=== PATIENT | female | born 1945 | race Caucasian/White ===

== ENCOUNTER → 2018-02-26 | Outpatient (CLI) | payer MEDICARE, BC ==
[~2018-02-26] MED LIST: ADVAIR 250/28 DISKU1 IH; CALCIUM WITH D1 CTB PO; COZAAR 25MG25 MG/TAB PO; LOVAZA1 GM PO; MULTIPLE VITAMI1 CAP PO; OMEPRAZOLE D/R20 MG PO; SERTRALINE50 MG PO; VENTOLIN0.09 MG IH
== END ==
LOC: MC.RAD 11:31
DX: Z12.31 Encounter for screening mammogram for malignant neoplasm of breast (principal)

== ENCOUNTER 2021-01-21 10:32 | Emergency (ER) | payer MEDICARE ==
[~2021-01-21] VITALS: Ht 162.6 cm; Wt 68.2 kg
[~2021-01-21 10:32] MED LIST changes: -OMEPRAZOLE D/R20 MG PO; +PRILOSEC 20MG20 MG PO
[2021-01-21 10:47] VITALS: TEMP 98.1
[2021-01-21] MEDS ORDERED: SINGULAIR 110 MG/TAB PO (10:56)
[2021-01-21] MEDS ORDERED: ZOLOFT 50MG50 MG PO (10:57)
[2021-01-21] MEDS ORDERED: BENICAR40 MG PO (10:57)
[2021-01-21 11:21] LABS: BASO # 0.1 K/mm3 (0.0-0.2); BASO % 0.9 % (0.0-2.0); EOS # 0.2 K/mm3 (0.0-0.7); GRAN # 4.3 K/mm3 (1.4-6.5); GRAN % 75.6 % (42.2-75.2); HEMOGLOBIN 13.9 g/dl (12.5-16.0); LYMPH # 0.6 K/mm3 (1.2-3.4); LYMPH % 10.2 % (20.0-51.0); MEAN CELL VOLUME 90 fl (80.0-100.0); MEAN CORPUSCULAR HEMOGLOBIN 31 pg (27.0-31.0); MEAN CORPUSCULAR HGB CONC 35 g/dl (33.0-37.0); MEAN PLATELET VOLUME 10.8 fl (7.4-10.4); MONO # 0.6 K/mm3 (0.1-0.6); MONO % 10.1 % (1.7-9.3); PLATELET COUNT 149 K/mm3 (130-400); RED BLOOD COUNT 4.43 M/mm3 (4.10-5.30); REDCELL DISTRIBUTION WIDTH-CV 12.3 % (11.5-14.5)
[2021-01-21 11:40] LABS: ALBUMIN 4.1 gm/dL (3.4-4.8); BILIRUBIN,TOTAL 0.8 mg/dL (0.2-1.2); CALCIUM 9.9 mg/dL (8.4-10.2); CREATININE, serum 0.62 mg/dL (0.57-1.11); POTASSIUM 4.4 mmol/L (3.5-4.5); TOTAL PROTEIN 6.6 gm/dL (6.2-8.1)
[2021-01-21 11:47] LABS: TROPONIN-I 0.024 ng/mL (0.00-0.033)
[2021-01-21 13:08] LABS: COLLECTION METHOD CLEAN CATCH
[2021-01-21 13:15] LABS: MUCOUS Present /lpf; PH 7 (5-8); SQUAMOUS EPITHELIAL None Seen /hpf; URINE APPEARANCE Clear; URINE BACTERIA Rare /hpf; URINE BILIRUBIN Negative (NEGATIVE); URINE BLOOD Negative (NEGATIVE); URINE COLOR Yellow; URINE GLUCOSE Negative (NEGATIVE); URINE KETONE Negative (NEGATIVE); URINE LEUKOCYTE ESTERASE Negative (NEGATIVE); URINE NITRATE Negative (NEGATIVE); URINE PROTEIN(semi-quant) Negative (NEGATIVE); URINE RBC 0-2 /hpf; URINE UROBILINOGEN Negative (NEGATIVE)
[2021-01-21] MEDS ORDERED: ANORO IH (13:28)
[2021-01-21] MEDS ORDERED: FOSAMAX 70MG TA70 MG PO (13:30)
[2021-01-21] MEDS ORDERED: ZOFRAN ODT4 MG PO (14:38)
[2021-01-21 16:11] VITALS: BP 128/76; PULSE 95
== END 2021-01-21 16:12 | disposition home or self-care (01) ==
LOC: COL.ER 10:32
PROVIDERS: Emergency Medicine; Physician Assistant
DX: K82.8 Other specified diseases of gallbladder (principal); E87.1 Hypo-osmolality and hyponatremia; I10 Essential (primary) hypertension; K21.9 Gastro-esophageal reflux disease without esophagitis; F32.A Depression, unspecified; Z87.891 Personal history of nicotine dependence; Z88.1 Allergy status to other antibiotic agents; Z79.899 Other long term (current) drug therapy
CPT/HCPCS: J1885; J2270; J2405; J7030

== ENCOUNTER 2021-02-01 11:17 | Day surgery (SDC) | payer MEDICARE ==
[~2021-02-01] VITALS: Ht 160 cm; Wt 64.4 kg
[~2021-02-01 11:17] MED LIST changes: +ANORO IH; +BENICAR40 MG PO; +FOSAMAX 70MG TA70 MG PO; +SINGULAIR 110 MG/TAB PO; +ZOFRAN ODT4 MG PO; +ZOLOFT 50MG50 MG PO
[2021-02-01] MEDS ORDERED: ZETIA 10MG TAB10 MG PO (11:54)
[2021-02-01] MEDS ORDERED: ZYRTEC 10MG10 MG PO (11:55)
[2021-02-01] MEDS ORDERED: DETROL 2MG TAB2 MG PO (11:56)
[2021-02-01 12:15] VITALS: BP 145/80; PULSE 77; TEMP 98.7
[2021-02-01] MEDS ORDERED: ULTRAM 50MG TAB50 MG PO (14:47)
[2021-02-01 15:45] VITALS: BP 92/62; PULSE 83; TEMP 98.5
--- NOTE | 2021-02-01 15:45 | NUR ---
Patient arrives to [facility] via cart, accompanied by [employer] Missy. She is drowsy, but easily awakens and converses appropriately with staff. She denies pain or nausea. Monitoring is applied - VSS and WNL on room air. She has 4 operative sites that are covered with clean/dry/intact bandaids. Lights are dimmed for comfort. Call light in reach. Her spouse is brought to the bedside. Will continue to monitor.
[2021-02-01 16:00] VITALS: BP 129/73; PULSE 79
--- NOTE | 2021-02-01 16:00 | NUR ---
Patient is more alert. She asks to sit up, HOB is raised. She denies pain, nausea, or need. She is offered and receives crackers and sprite to eat/drink. She requests and receives coffee. She is chatting with her spouse. VSS on room air.
[2021-02-01 16:15] VITALS: BP 152/62; PULSE 83
--- NOTE | 2021-02-01 16:15 | NUR ---
VSS on room air. Requests/receives more sprite and a muffin. Tolerating PO well.
[2021-02-01 16:30] VITALS: BP 106/88; PULSE 89
--- NOTE | 2021-02-01 16:50 | NUR ---
Patient ambulates to the restroom with steady gait, voids, and returns to room.
--- NOTE | 2021-02-01 17:10 | NUR ---
Patient has met discharge criteria. Discharge instructions are discussed. She denies any questions and verbalizes understanding. PIV is removed with catheter intact and hemostasis achieved. She changes to her clothing independently. She is escorted to the exit via wheelchair by staff. She is discharged to home to the care of her , who drives her home in private vehicle at 1710.
== END 2021-02-01 17:10 | disposition home or self-care (01) ==
LOC: SDCO 11:17
DX: K80.12 Calculus of gallbladder with acute and chronic cholecystitis without obstruction (principal); I10 Essential (primary) hypertension; E78.5 Hyperlipidemia, unspecified; J45.909 Unspecified asthma, uncomplicated; K21.9 Gastro-esophageal reflux disease without esophagitis; E78.00 Pure hypercholesterolemia, unspecified; F32.9 Major depressive disorder, single episode, unspecified; Z90.89 Acquired absence of other organs; Z79.899 Other long term (current) drug therapy; Z98.51 Tubal ligation status; Z83.3 Family history of diabetes mellitus
CPT/HCPCS: J2550; J3010; J7120

== ENCOUNTER 2021-03-02 08:04 | Day surgery (SDC) | payer MEDICARE ==
[~2021-03-02] VITALS: Ht 162.6 cm; Wt 65.5 kg
[~2021-03-02 08:04] MED LIST changes: +DETROL 2MG TAB2 MG PO; +ULTRAM 50MG TAB50 MG PO; +ZETIA 10MG TAB10 MG PO; +ZYRTEC 10MG10 MG PO
[2021-03-02 08:43] VITALS: BP 123/89; PULSE 86; TEMP 97.4
[2021-03-02 09:50] VITALS: BP 116/78; PULSE 78; TEMP 97.2
--- NOTE | 2021-03-02 09:50 | NUR ---
0950- PATIENT BROUGHT BACK TO [facility] VIA CART. AMBULATED TO CHAIR WITHOUT DIFFICULTY. PATIENT IS ALERT AND ORIENTED. DENIES PAIN OR NAUSEA. AT BEDSIDE TO DRIVE PATIENT HOME. RAMOS KELLER AT BEDSIDE FOR REPORT. IV INFUSING. PATIENT REQUESTS COFFEE AND MUFFIN. WARM BLANKET PROVIDED, CALL ANDINO WITHIN REACH. WILL CONTINUE TO MONITOR. 1005- PATIENT TOLERATING FOOD AND DRINK WITHOUT DIFFICULTY. VITAL SIGNS STABLE. 1020- VITAL SIGNS STABLE. PATIENT STATES SHE WOULD LIKE TO LEAVE AT THIS TIME. DR. CORRAL AT BEDSIDE TO SPEAK TO PATIENT ABOUT RESULTS. IV REMOVED, INTACT. DISCHARGE INSTRUCTIONS REVIEWED WITH PATIENT AND . PATIENT TO GET DRESSED AT THIS TIME. 1040- PATIENT BROUGHT DOWN TO LOBBY VIA WHEEL CHAIR. PICKED UP AT FRONT ENTRANCE. ASSISTED INTO PASSENGER SEAT. ALL BELONGINGS IN HAND.
[2021-03-02 10:05] VITALS: BP 120/84; PULSE 82
[2021-03-02 10:20] VITALS: BP 138/72; PULSE 75
== END 2021-03-02 10:40 | disposition home or self-care (01) ==
LOC: SDCO 08:04
DX: Z12.11 Encounter for screening for malignant neoplasm of colon (principal); D12.2 Benign neoplasm of ascending colon; K64.0 First degree hemorrhoids; K57.30 Diverticulosis of large intestine without perforation or abscess without bleeding; I10 Essential (primary) hypertension; K21.9 Gastro-esophageal reflux disease without esophagitis; J45.909 Unspecified asthma, uncomplicated; E78.00 Pure hypercholesterolemia, unspecified; E78.5 Hyperlipidemia, unspecified; F32.A Depression, unspecified; Z90.49 Acquired absence of other specified parts of digestive tract; Z90.89 Acquired absence of other organs; Z98.51 Tubal ligation status; Z80.0 Family history of malignant neoplasm of digestive organs
CPT/HCPCS: J2704; J7030

== ENCOUNTER → 2021-03-30 | Outpatient (CLI) | payer MEDICARE | LOC: MC.RAD 13:27 | DX: Z12.31 Encounter for screening mammogram for malignant neoplasm of breast (principal) ==

== ENCOUNTER → 2023-10-17 | Outpatient (CLI) | payer MEDICARE | LOC: MC.RAD 13:05 | DX: Z12.31 Encounter for screening mammogram for malignant neoplasm of breast (principal) ==